=== PATIENT | female | born 1975 | race Hispanic/Latino ===

== ENCOUNTER 2018-02-24 17:54 | Emergency (ER) | payer BC, SELFPAY ==
[2018-02-24] MEDS ORDERED: KETOROLAC TROMETHAMINE 60 MG/2 ML VIAL ONE (18:26)
[2018-02-24] MEDS ORDERED: ORPHENADRINE CITRATE 30 MG/ML ML ONE (18:26)
== END 2018-02-24 19:16 | disposition home or self-care (01) ==
LOC: EDH 17:54
DX: S29.011A Strain of muscle and tendon of front wall of thorax, initial encounter (principal); S46.811A Strain of other muscles, fascia and tendons at shoulder and upper arm level, right arm, initial encounter; Z98.890 Other specified postprocedural states; Z79.899 Other long term (current) drug therapy; V49.09XA Driver injured in collision with other motor vehicles in nontraffic accident, initial encounter; Y93.89 Activity, other specified; Y92.89 Other specified places as the place of occurrence of the external cause; Y99.8 Other external cause status
CPT/HCPCS: 71045; 73030; 93005; 96372 ×2; 99284; J1885; J2360

== ENCOUNTER → 2021-11-15 | Outpatient (CLI) | payer BC | END | disposition home or self-care (01) | LOC: LAB 08:32 | PROVIDERS: ATTEND Internal Medicine Nephrology | DX: N95.1 Menopausal and female climacteric states (principal) | CPT/HCPCS: 36415; 82670; 82672; 83001; 83002; 84702 ==

== ENCOUNTER 2022-06-23 12:32 | Emergency (ER) | payer BC, OTHER ==
[~2022-06-23] VITALS: Ht 157.5 cm; Wt 62.1 kg
[2022-06-23 12:41] VITALS: BP 124/89
[2022-06-23 15:36] LABS: BASOPHILS % (AUTO) 0.5 % (0.0-5.0); EOSINOPHILS % (AUTO) 0.6 % (0.0-8.0); HEMATOCRIT 35.2 % (36-48); LYMPHOCYTES % (AUTO) 35.1 % (21.0-51.0); MEAN CORPUSCULAR HEMOGLOBIN 23.9 pg (27.0-33.0); MEAN CORPUSCULAR HGB CONC 30.4 g/dL (32.0-36.0); MEAN CORPUSCULAR VOLUME 78.6 fL (79-99); MONOCYTES % (AUTO) 6.9 % (3.0-13.0); NEUTROPHILS % (AUTO) 53.8 % (40.0-77.0); PLATELET COUNT (AUTO) 389 K/uL (130-400); RED BLOOD CELL COUNT(AUTO) 4.48 MIL/uL (4.00-5.50); RED CELL DISTRIBUTION WIDTH 16.9 % (11.0-15.5); WHITE BLOOD COUNT (AUTO) 14.4 K/uL (4.8-10.8)
[2022-06-23 15:44] LABS: CREATININE 0.9 mg/dL (0.5-1.5); POTASSIUM 3.6 mmol/L (3.5-5.1)
[2022-06-23 15:50] LABS: ALBUMIN 3.6 g/dL (3.5-5.0); TOTAL PROTEIN, SERUM 6.9 g/dL (6.0-8.3)
[2022-06-23 17:21] LABS: APPEARANCE,URINE TURBID (CLEAR); BACTERIA,URINE RARE /HPF (None Seen); BILIRUBIN,URINE NEGATIVE (NEGATIVE); COLOR,URINE DARK-BROWN (YELLOW); GLUCOSE, URINE (UA) NEGATIVE (NEGATIVE); KETONES,URINE 5 mg/dL (NEGATIVE); LEUKOCYTE ESTERASE ,URINE 75 Leu/uL (NEGATIVE); MUCUS,URINE FEW LPF (None Seen); NITRATE,URINE NEGATIVE (NEGATIVE); OCCULT BLOOD,URINE LARGE (NEGATIVE); PH,URINE 5.5 (5.0-8.0); PROTEIN,URINE 50 mg/dL (NEGATIVE); RBC,URINE TNTC /HPF (0-1); UROBILINOGEN,URINE 0.2 mg/dL (0.2-1.0)
[2022-06-23] MEDS ORDERED: FLUT16H NASAL (17:37)
[2022-06-23] MEDS ORDERED: CEPH500B PO (17:37)
== END 2022-06-23 17:50 | disposition home or self-care (01) ==
LOC: EDH 12:32
DX: N39.0 Urinary tract infection, site not specified (principal); J32.9 Chronic sinusitis, unspecified; Z90.49 Acquired absence of other specified parts of digestive tract; Z20.822 Contact with and (suspected) exposure to COVID-19
CPT/HCPCS: 99285; 71045; 87635; 84484; 80053; 85025; 87088; 87804 ×2; 81001; 36415; 93005; C9803

== ENCOUNTER 2022-10-23 12:50 | Emergency (ER) | payer BC, OTHER ==
[~2022-10-23] VITALS: Ht 157.5 cm; Wt 61.7 kg
[~2022-10-23 12:50] MED LIST: CEPH500B PO; FLUT16H NASAL
[2022-10-23 14:07] LABS: BASOPHILS % (AUTO) 0.6 % (0.0-5.0); EOSINOPHILS % (AUTO) 1.1 % (0.0-8.0); HEMATOCRIT 39.3 % (36-48); LYMPHOCYTES % (AUTO) 21.3 % (21.0-51.0); MEAN CORPUSCULAR HEMOGLOBIN 24.1 pg (27.0-33.0); MEAN CORPUSCULAR HGB CONC 30.5 g/dL (32.0-36.0); MEAN CORPUSCULAR VOLUME 78.9 fL (79-99); MONOCYTES % (AUTO) 6.8 % (3.0-13.0); NEUTROPHILS % (AUTO) 69.8 % (40.0-77.0); PLATELET COUNT (AUTO) 318 K/uL (130-400); RED BLOOD CELL COUNT(AUTO) 4.98 MIL/uL (4.00-5.50); RED CELL DISTRIBUTION WIDTH 16.8 % (11.0-15.5); WHITE BLOOD COUNT (AUTO) 9.8 K/uL (4.8-10.8)
[2022-10-23 14:11] LABS: APPEARANCE,URINE TURBID (CLEAR); BILIRUBIN,URINE NEGATIVE (NEGATIVE); COLOR,URINE DARK-BROWN (YELLOW); GLUCOSE, URINE (UA) NEGATIVE (NEGATIVE); KETONES,URINE 5 mg/dL (NEGATIVE); LEUKOCYTE ESTERASE ,URINE 75 Leu/uL (NEGATIVE); NITRATE,URINE NEGATIVE (NEGATIVE); OCCULT BLOOD,URINE LARGE (NEGATIVE); PROTEIN,URINE 50 mg/dL (NEGATIVE)
[2022-10-23 14:15] LABS: CREATININE 0.8 mg/dL (0.5-1.5); POTASSIUM 3.8 mmol/L (3.5-5.1)
[2022-10-23 14:21] LABS: HCG,QUALITATIVE URINE NEGATIVE (NEGATIVE)
[2022-10-23 14:23] LABS: ALBUMIN 4.1 g/dL (3.5-5.0); BACTERIA,URINE RARE /HPF (None Seen); MUCUS,URINE MOD LPF (None Seen); RBC,URINE TNTC /HPF (0-1); TOTAL PROTEIN, SERUM 7.7 g/dL (6.0-8.3); YEAST,URINE BUDDING FEW /HPF (None Seen)
[2022-10-23] MEDS ORDERED: IOHEXOL-350 75 ML VIAL IV ONE (14:54)
[2022-10-23] MEDS ORDERED: CEFTRIAXONE 1G VIAL IVPB ONE (15:30)
[2022-10-23 19:44] VITALS: BP 129/67
[2022-10-23] MEDS ORDERED: ONDA4TAB10 PO (19:52)
[2022-10-23] MEDS ORDERED: ONDANSETRON ODT 4MG TAB SL ONE (20:00)
== END 2022-10-23 20:36 | disposition home or self-care (01) ==
LOC: EDH 12:50
DX: N39.0 Urinary tract infection, site not specified (principal); Z90.49 Acquired absence of other specified parts of digestive tract
CPT/HCPCS: 99285; 74177; 96365; 96366; 76705; 80053; 85025; 87088; 83605; 81001; 81025; 36415; J0696; Q9967

== ENCOUNTER 2022-10-28 15:26 | Emergency (ER) | payer BC ==
[~2022-10-28] VITALS: Ht 157.5 cm; Wt 63.0 kg
[~2022-10-28 15:26] MED LIST changes: +ONDA4TAB10 PO
[2022-10-28 16:44] LABS: BASOPHILS % (AUTO) 0.5 % (0.0-5.0); EOSINOPHILS % (AUTO) 3.2 % (0.0-8.0); HEMATOCRIT 36.1 % (36-48); LYMPHOCYTES % (AUTO) 24.3 % (21.0-51.0); MEAN CORPUSCULAR HEMOGLOBIN 24.4 pg (27.0-33.0); MEAN CORPUSCULAR HGB CONC 30.5 g/dL (32.0-36.0); MONOCYTES % (AUTO) 9.7 % (3.0-13.0); NEUTROPHILS % (AUTO) 61.8 % (40.0-77.0); PLATELET COUNT (AUTO) 319 K/uL (130-400); RED BLOOD CELL COUNT(AUTO) 4.51 MIL/uL (4.00-5.50); RED CELL DISTRIBUTION WIDTH 16.6 % (11.0-15.5); WHITE BLOOD COUNT (AUTO) 7.5 K/uL (4.8-10.8)
[2022-10-28 16:46] LABS: APPEARANCE,URINE CLEAR (CLEAR); BILIRUBIN,URINE NEGATIVE (NEGATIVE); COLOR,URINE LIGHT-YELLOW (YELLOW); GLUCOSE, URINE (UA) NEGATIVE (NEGATIVE); KETONES,URINE NEGATIVE (NEGATIVE); LEUKOCYTE ESTERASE ,URINE 75 Leu/uL (NEGATIVE); NITRATE,URINE NEGATIVE (NEGATIVE); OCCULT BLOOD,URINE LARGE (NEGATIVE); PH,URINE 6.5 (5.0-8.0); PROTEIN,URINE NEGATIVE (NEGATIVE); UROBILINOGEN,URINE 0.2 mg/dL (0.2-1.0)
[2022-10-28 16:51] LABS: HCG,QUALITATIVE URINE NEGATIVE (NEGATIVE)
[2022-10-28 16:52] LABS: BACTERIA,URINE RARE /HPF (None Seen); RBC,URINE TNTC /HPF (0-1); SQUAMOUS EPITHELIAL CELL,UR RARE /HPF (0-2)
[2022-10-28 16:53] LABS: CREATININE 0.7 mg/dL (0.5-1.5)
[2022-10-28 16:57] LABS: TOTAL PROTEIN, SERUM 7.2 g/dL (6.0-8.3)
[2022-10-28] MEDS ORDERED: IOHEXOL 350 MG/ML 100ML INFUS..BTL IV ONE (17:48)
[2022-10-28] MEDS ORDERED: ONDANSETRON 4MG INJ IVP STA (18:24)
[2022-10-28] MEDS ORDERED: ONDANSETRON 4MG INJ ONE (18:26)
[2022-10-28] MEDS ORDERED: MORPHINE 2 MG SYG IVP ONE (18:30)
[2022-10-29] MEDS ORDERED: CEFTRIAXONE 1G VIAL IVPB ONE
[2022-10-29] MEDS ORDERED: SULF1TAB42 PO (00:36)
[2022-10-29 01:00] VITALS: BP 129/70
== END 2022-10-29 00:47 | disposition home or self-care (01) ==
LOC: EDH 15:26
DX: N39.0 Urinary tract infection, site not specified (principal); R10.84 Generalized abdominal pain; Z90.49 Acquired absence of other specified parts of digestive tract; Z98.890 Other specified postprocedural states
CPT/HCPCS: 99284; 74177; 96374; 96375 ×2; 80053; 83690; 85025; 87088; 81001; 81025; 36415; 93005; J2405; Q9967; J0696